=== PATIENT | female | born 1970 | race Two or more races ===

== ENCOUNTER 2022-01-15 08:45 | Outpatient (CLI) | payer OTHER | END 2022-01-15 08:46 | disposition home or self-care (01) | LOC: LAB 08:45 | PROVIDERS: ATTEND Internal Medicine Cardiovascular Disease | DX: I10 Essential (primary) hypertension (principal); E11.9 Type 2 diabetes mellitus without complications; E03.9 Hypothyroidism, unspecified; E78.2 Mixed hyperlipidemia; E55.9 Vitamin D deficiency, unspecified; N80.9 Endometriosis, unspecified; Z12.11 Encounter for screening for malignant neoplasm of colon ==

== ENCOUNTER 2022-01-15 09:17 | Outpatient (CLI) | payer OTHER | END 2022-01-15 09:21 | disposition home or self-care (01) | LOC: MAMO-SONO | PROVIDERS: ATTEND Internal Medicine Cardiovascular Disease | DX: Z12.31 Encounter for screening mammogram for malignant neoplasm of breast (principal); N63.11 Unspecified lump in the right breast, upper outer quadrant ==

== ENCOUNTER 2022-01-15 10:13 | Outpatient (CLI) | payer OTHER | END 2022-01-15 15:52 | disposition home or self-care (01) | LOC: NUCLEAR 10:13 | PROVIDERS: ATTEND Internal Medicine Cardiovascular Disease | DX: M81.0 Age-related osteoporosis without current pathological fracture (principal); E55.9 Vitamin D deficiency, unspecified ==

== ENCOUNTER 2024-05-04 08:41 | Outpatient (CLI) | payer OTHER ==
[2024-05-04 09:34] LABS: PH,URINE 5.5 (5.0-8.0); URINE APPEARANCE Clear; URINE BILIRRUBIN Negative (NEGATIVE); URINE BLOOD Negative; URINE COLOR Yellow; URINE GLUCOSE Negative (NEGATIVE); URINE KETONE Negative (NEGATIVE); URINE LEUKOCYTE Negative; URINE NITRATE Negative; URINE PROTEIN Negative (NEGATIVE); URINE UROBILINOGEN 0.2 E.U./dl
[2024-05-04 09:35] LABS: HEMATOCRIT 45.8 % (36.0-45.00); HEMOGLOBIN 15.2 g/dL (12.0-15.00); MEAN CELL VOLUME 92.9 fL (80.00-100.00); MEAN CORPUSCULAR HEMOGLOBIN 30.8 pg (27.00-32.0); MEAN CORPUSCULAR HGB CONC 33.1 g/dl (32.0-36.0); PLATELET COUNT 254 K/uL (150-450); RED BLOOD COUNT 4.93 M/uL (4.00-6.00); RED CELL DISTRIBUTION WIDTH 13.6 % (11.5-14.5)
[2024-05-04 09:36] LABS: URINE BACTERIA 22.6 uL (0.0-1933); URINE EPITHELIAL CELLS 6.1 uL (0.0-38.8)
[2024-05-04 09:49] LABS: URINE RBC 0.4 uL (0.0-20.8); URINE WBC 1.3 uL (0.0-23.2)
[2024-05-04 11:02] LABS: BILIRUBIN TOTAL 0.97 mg/dL (0.3-1.2); CALCIUM 9.5 mg/dL (8.5-10.1); CHOL HDL RATIO 5.2 (0-5.0); CREATININE SERUM 0.98 mg/dL (0.55-1.02); GFR 59.37; GLOBULINA 3.7 G/DL (2.4-3.5); POTASSIUM 4.16 mEq/L (3.5-5.1); T4 TOTAL 12.3 UG/DL (4.8-13.9); TOTAL PROTEIN 7.7 gm/dL (6.4-8.2)
[2024-05-04 11:05] LABS: TSH 5.38 uIU/mL (0.358-3.74)
[2024-05-04 12:09] LABS: FOLIC ACID 10.81 ng/ml (4.78-20); T3 TOTAL 1.59 ng/ml (0.846-2.02); VITAMIN D3 25 HYDROXY 54.32 ng/ml (30-120)
== END 2024-05-04 15:20 | disposition home or self-care (01) ==
LOC: LAB 08:41
PROVIDERS: ATTEND Internal Medicine Cardiovascular Disease
DX: G31.84 Mild cognitive impairment of uncertain or unknown etiology (principal); I10 Essential (primary) hypertension; E11.9 Type 2 diabetes mellitus without complications; E03.9 Hypothyroidism, unspecified; E78.2 Mixed hyperlipidemia; N95.1 Menopausal and female climacteric states

== ENCOUNTER 2024-05-04 10:33 | Outpatient (CLI) | payer OTHER | END 2024-05-04 10:36 | disposition home or self-care (01) | LOC: NUCLEAR 10:33 | PROVIDERS: ATTEND Internal Medicine Cardiovascular Disease | DX: R07.9 Chest pain, unspecified (principal); I10 Essential (primary) hypertension; J44.9 Chronic obstructive pulmonary disease, unspecified ==

== ENCOUNTER 2024-05-04 14:40 | Outpatient (CLI) | payer OTHER | END 2024-05-04 14:44 | disposition home or self-care (01) | LOC: SONOGRAMA 14:40 | PROVIDERS: ATTEND Internal Medicine Cardiovascular Disease | DX: R10.9 Unspecified abdominal pain (principal); E03.9 Hypothyroidism, unspecified ==

== ENCOUNTER 2024-07-20 12:40 | Outpatient (CLI) | payer OTHER | END 2024-07-20 12:42 | disposition home or self-care (01) | LOC: SONOGRAMA 12:40 | PROVIDERS: ATTEND Pathology Anatomic Pathology & Clinical Pathology | DX: D34 Benign neoplasm of thyroid gland (principal); E07.89 Other specified disorders of thyroid; E04.1 Nontoxic single thyroid nodule; N95.0 Postmenopausal bleeding ==